=== PATIENT | male | born 1955 | race Caucasian/White ===

== ENCOUNTER 2018-12-06 19:14 | Emergency (ER) | payer SELFPAY ==
[~2018-12-06] VITALS: Ht 172.7 cm; Wt 82.7 kg
[~2018-12-06 19:14] MED LIST: KEPPRA750 MG PO
[2018-12-06 19:17] VITALS: BP 137/85; TEMP 97.4
[2018-12-06 19:47] LABS: BASO # 0.1 (0.0-0.2); BASO % 0.3 % (0.0-2.0); EOS # 0.2 (0.0-0.7); GRAN # 12.9 (1.4-6.5); GRAN % 77.1 % (42.2-75.2); HEMOGLOBIN 14.4 g/dl (13.5-18.0); LYMPH # 2.1 (1.2-3.4); LYMPH % 12.4 % (20.0-51.0); MEAN CELL VOLUME 90 fl (80.0-100.0); MEAN CORPUSCULAR HEMOGLOBIN 31 pg (27.0-31.0); MEAN CORPUSCULAR HGB CONC 34 g/dl (33.0-37.0); MEAN PLATELET VOLUME 10.1 fl (7.4-10.4); MONO # 1.5 (0.1-0.6); MONO % 8.7 % (1.7-9.3); PLATELET COUNT 199 K/mm3 (130-400); RED BLOOD COUNT 4.66 M/mm3 (4.20-5.60); REDCELL DISTRIBUTION WIDTH-CV 11.8 % (11.5-14.5)
[2018-12-06 20:03] LABS: ALBUMIN 4.2 gm/dL (3.5-5.0); BILIRUBIN,TOTAL 0.6 mg/dL (0.0-1.0); CALCIUM 8.9 mg/dL (8.4-10.2); CREATININE, serum 1.23 (0.66-1.25); POTASSIUM 4.3 mmol/L (3.4-5.0)
[2018-12-06] MEDS ORDERED: OMEGA-31 SGL PO (20:09)
[2018-12-06 22:05] LABS: COLLECTION METHOD CATHETER
[2018-12-06 22:16] LABS: MUCOUS Present /lpf; PH 5 (5-8); SQUAMOUS EPITHELIAL 0-2 /hpf; URINE APPEARANCE Hazy; URINE BACTERIA None Seen /hpf; URINE BILIRUBIN Negative (NEGATIVE); URINE BLOOD 2+ (NEGATIVE); URINE COLOR Yellow; URINE GLUCOSE Negative (NEGATIVE); URINE KETONE Negative (NEGATIVE); URINE LEUKOCYTE ESTERASE Negative (NEGATIVE); URINE NITRATE Negative (NEGATIVE); URINE PROTEIN(semi-quant) Negative (NEGATIVE); URINE UROBILINOGEN Negative (NEGATIVE)
[2018-12-07 03:06] VITALS: PULSE 60
== END 2018-12-06 22:27 | disposition short-term general hospital (02) ==
LOC: COL.ER 19:14
PROVIDERS: Emergency Medicine
DX: S22.41XA Multiple fractures of ribs, right side, initial encounter for closed fracture (principal); S31.001A Unspecified open wound of lower back and pelvis with penetration into retroperitoneum, initial encounter; V80.010A Animal-rider injured by fall from or being thrown from horse in noncollision accident, initial encounter
CPT/HCPCS: J0690; J2405; J3010; J3370; J7030; J7050; Q9967

== ENCOUNTER 2018-12-22 22:21 | Emergency (ER) | payer OTHER ==
[~2018-12-22] VITALS: Ht 172.7 cm; Wt 79.5 kg
[~2018-12-22 22:21] MED LIST changes: +OMEGA-31 SGL PO
[2018-12-22 22:27] VITALS: BP 136/76; PULSE 94; TEMP 99.1
[2018-12-22] MEDS ORDERED: BENICAR40 MG PO (23:03)
[2018-12-22] MEDS ORDERED: OXY IR5 MG PO (23:03)
[2018-12-22] MEDS ORDERED: SENNA-LAX8.6 MG PO (23:03)
[2018-12-22] MEDS ORDERED: TYLENOL 325MG325 MG PO (23:03)
[2018-12-22] MEDS ORDERED: ROBAXIN 75750 MG/TAB PO (23:09)
[2018-12-22 23:14] LABS: BASO # 0.1 (0.0-0.2); BASO % 0.6 % (0.0-2.0); EOS # 0.3 (0.0-0.7); EOS % 3.2 % (0-4.0); GRAN % 68.5 % (42.2-75.2); LYMPH # 1.9 (1.2-3.4); LYMPH % 18.5 % (20.0-51.0); MEAN CELL VOLUME 93 fl (80.0-100.0); MEAN CORPUSCULAR HGB CONC 32 g/dl (33.0-37.0); MEAN PLATELET VOLUME 9.1 fl (7.4-10.4); MONO # 0.9 (0.1-0.6); MONO % 8.7 % (1.7-9.3); PLATELET COUNT 353 K/mm3 (130-400); RED BLOOD COUNT 2.96 M/mm3 (4.20-5.60); REDCELL DISTRIBUTION WIDTH-CV 13.2 % (11.5-14.5)
[2018-12-22 23:16] LABS: HEMATOCRIT 27.4 % (42.0-52.0); HEMOGLOBIN 8.8 g/dl (13.5-18.0); MEAN CORPUSCULAR HEMOGLOBIN 30 pg (27.0-31.0)
[2018-12-23] MEDS ORDERED: LOVENOX 8080 MG/0.8 SQ (00:32)
== END 2018-12-23 00:48 | disposition home or self-care (01) ==
LOC: COL.ER 22:21
PROVIDERS: Emergency Medicine
DX: M79.89 Other specified soft tissue disorders (principal); M79.604 Pain in right leg; Z87.828 Personal history of other (healed) physical injury and trauma; Z98.890 Other specified postprocedural states
CPT/HCPCS: J1650

== ENCOUNTER → 2018-12-23 | Outpatient (CLI) | payer OTHER ==
[~2018-12-23] MED LIST changes: +BENICAR40 MG PO; +LOVENOX 8080 MG/0.8 SQ; +OXY IR5 MG PO; +ROBAXIN 75750 MG/TAB PO; +SENNA-LAX8.6 MG PO; +TYLENOL 325MG325 MG PO
== END ==
LOC: COL.RAD 09:13
DX: I82.431 Acute embolism and thrombosis of right popliteal vein (principal); I82.4Z1 Acute embolism and thrombosis of unspecified deep veins of right distal lower extremity

== ENCOUNTER 2020-01-10 16:39 | Observation (INO) | payer MEDICARE, OTHER ==
[~2020-01-10] VITALS: Ht 172.7 cm; Wt 98.8 kg
[2020-01-10 17:29] LABS: BASO # 0.1 (0.0-0.2); BASO % 0.6 % (0.0-2.0); EOS # 0.2 (0.0-0.7); EOS % 2.7 % (0-4.0); GRAN # 5.4 (1.4-6.5); GRAN % 62.8 % (42.2-75.2); HEMATOCRIT 41.7 % (42.0-52.0); HEMOGLOBIN 14.1 g/dl (13.5-18.0); LYMPH # 1.9 (1.2-3.4); LYMPH % 21.5 % (20.0-51.0); MEAN CELL VOLUME 90 fl (80.0-100.0); MEAN CORPUSCULAR HEMOGLOBIN 30 pg (27.0-31.0); MEAN CORPUSCULAR HGB CONC 34 g/dl (33.0-37.0); MONO # 1.1 (0.1-0.6); MONO % 12.2 % (1.7-9.3); PLATELET COUNT 179 K/mm3 (130-400); RED BLOOD COUNT 4.65 M/mm3 (4.20-5.60); REDCELL DISTRIBUTION WIDTH-CV 11.9 % (11.5-14.5)
[2020-01-10 17:40] LABS: PROTHROMBIN TIME 11.5 SECONDS (9.7-12.8)
[2020-01-10 17:42] LABS: PARTIAL THROMBOPLASTIN TIME 29.4 SECONDS (26.0-37.0)
[2020-01-10 17:46] LABS: ALANINE AMINOTRANSFERASE 16 U/L (4-49); ALBUMIN 4.3 gm/dL (3.5-5.0); ALKALINE PHOSPHATASE 67 U/L (50-136); ANION GAP 8 mmol/L (7-16); AST,SGOT 26 U/L (15-37); BILIRUBIN,TOTAL 0.7 mg/dL (0.0-1.0); BLOOD UREA NITROGEN 13 mg/dL (9-20); CALCIUM 8.9 mg/dL (8.4-10.2); CARBON DIOXIDE 26 mmol/L (22-30); CHLORIDE 104 mmol/L (98-107); GLUCOSE 109 mg/dL (74-106); POTASSIUM 4.1 mmol/L (3.4-5.0); SODIUM 137 mmol/L (137-145); TOTAL PROTEIN 7.2 gm/dL (6.4-8.2)
[2020-01-10 18:05] LABS: TROPONIN-I < 0.012 ng/mL (0.000-0.035)
[2020-01-10] MEDS ORDERED: IBU400 MG PO (21:41)
--- NOTE | 2020-01-10 22:15 | NUR ---
ARRIVED PER W/C TO ROOM FROM ED. IS ALERT AND ORIENTED X4. HAS SWOLLEN LEFT ARM. DENIES NEED FOR PAIN MEDS. SL TO RIGHT AC, FLUSHES WELL.
[2020-01-10 22:47] VITALS: BP 145/81; PULSE 77; TEMP 99
[2020-01-11 00:27] VITALS: BP 142/77; PULSE 63; TEMP 98.8
[2020-01-11 03:39] VITALS: BP 148/80; PULSE 66; TEMP 98.5
--- NOTE | 2020-01-11 06:00 | NUR ---
Has denied needs this shift.
--- NOTE | 2020-01-11 07:10 | NUR ---
Lying in bed with eyes open. Denies pain at this time. Swelling noted to left arm. CMS intact to left arm. Patient says he hopes that he can go home today. Denies additional needs at this time.
[2020-01-11 07:59] VITALS: BP 147/81; PULSE 72; TEMP 98.2
--- NOTE | 2020-01-11 09:45 | NUR ---
Patient explains that he had his US done and was wondering if he should change his lunch menu or if he will be discharged prior to lunch. Encouraged patient to change lunch menu at this time. Provided water and Pepsi per patient request. Patient denies additional needs at this time.
--- NOTE | 2020-01-11 11:32 | NUR ---
Die Reamer met with the patient to complete initial intake. The patient lives in [place] with his girlfriend, Carri Salomon. The patient has CPAP and will begin receiving supplies from [facility]. He is independent with ADLs. The patient receives medication from [facility] with no difficulties. The patient does not have advanced directives but was interested in DPOA-HC form. Form provided. The patient will drive himself home at discharge. He has no concerns about returning home. There are no additional needs at this time.
[2020-01-11] MEDS ORDERED: ELIQUIS 5MG PO ×3 (12:24→12:47)
[2020-01-11 12:27] VITALS: BP 161/85; PULSE 66; TEMP 97.9
--- NOTE | 2020-01-11 12:50 | NUR ---
Reviewed all discharge instructions with the patient. Questions answered. Patient verbalizes understanding and signs discharge paperwork. Discharge packet provided to the patient. Patient will be driving himself home. Patient will gather all belongings and will use call light when ready to be walked out.
--- NOTE | 2020-01-11 13:06 | NUR ---
Patient calls and is ready to be escorted out to POV. Has all personal belongings. ZAY Rader, assists patient out.
== END 2020-01-11 13:10 | disposition home or self-care (01) ==
LOC: COL.ER 16:39 → JCC 19:33
PROVIDERS: Emergency Medicine; ADMIT Internal Medicine
DX: R60.9 Edema, unspecified (principal); I10 Essential (primary) hypertension; R56.9 Unspecified convulsions; Z86.718 Personal history of other venous thrombosis and embolism; Z79.899 Other long term (current) drug therapy
CPT/HCPCS: G0378; J1200; J1650; Q9967

== ENCOUNTER 2023-03-19 09:59 | Emergency (ER) | payer MEDICARE, OTHER ==
[~2023-03-19] VITALS: Ht 172.7 cm; Wt 84.1 kg
[~2023-03-19 09:59] MED LIST changes: +ELIQUIS 5MG PO; +IBU400 MG PO
[2023-03-19] MEDS ORDERED: ELIQUIS 5MG PO ×2 (11:46→11:50)
[2023-03-19 12:07] VITALS: BP 128/77; PULSE 78; TEMP 97.6
== END 2023-03-19 12:01 | disposition home or self-care (01) ==
LOC: COL.ER 09:59
DX: M79.89 Other specified soft tissue disorders (principal); Z86.718 Personal history of other venous thrombosis and embolism; Z87.828 Personal history of other (healed) physical injury and trauma; Z98.890 Other specified postprocedural states

== ENCOUNTER → 2023-03-21 | Outpatient (CLI) | payer MEDICARE, OTHER | LOC: COL.RAD 07:56 | DX: I82.432 Acute embolism and thrombosis of left popliteal vein (principal) ==